=== PATIENT | male | born 1940 | race African-American/Black ===

== ENCOUNTER 2016-07-13 19:36 | Emergency (ER) | payer OTHER ==
[~2016-07-13] VITALS: Ht 170.2 cm; Wt 68.0 kg
[~2016-07-13 19:36] MED LIST: ACETAMINOPHEN325 M1 PO; ACID CONTROL20 MG PO; ASPIRIN EC81 M1 PO; ASPIRIN325 PO; BISA-LAX5 MG PO; BISACODYL SUPP10 MG RECTAL; CELEXA20 MG PO; CENTRUM SILVER1 EAC4 PO; CENTRUM SILVER1 EAC5 PO; COLACE100 MG PO; COUMADIN 4 MG TA4 M1 PO; COUMADIN 5 MG TA5 M1 PO; CRESTOR20 MG PO; CRESTOR5 MG PO; DUETACT 30-2 M1 EACH; ENOXAPARIN80 MG/0.1 SUBQ; FLEXERIL PO; GLIPIZIDE ER5 MG PO; HEPARIN SO1000 UNIT/ IV PUSH; JANUVIA25 MG PO; LASIX 40 MG TAB40 M1 PO; LIPITOR 20 MG T20 M1 PO; LORTAB 5 MG/5001 TA1 PO; MEGESTROL ACETA40 MG PO; MEGESTROL40 MG/1 M1 PO; MIDODRINE HCL10 MG PO; MIRALAX17 GM PO; MYNEPHROCAPS SOF1 MG PO; NEPHPLEX RX TA1 EACH PO; NEPHROCAPS SOFT1 CAP PO; NEURONTIN 300300 M1 PO; NICOTINE TRANSD21 M1 TRANSDERM; NORCO 5-325 TA1 EACH PO; PROTONIX40 M1 PO; PYRIDOXINE HCL100 MG PO; REGLAN 10 MG TA10 MG PO; REMERON15 MG PO; RENAL CAPS SOFTG1 MG; RENO CAPS; RENO CAPS PO; RENVELA800 MG PO; SENNA PO; SENSIPAR 30 MG30 M1 PO; TAMSULOSIN HCL0.4 M1; TAMSULOSIN HCL0.4 M1 PO; TIMOLOL GL0.5 %/5 M1 OPHTHALMIC; TRADJENTA5 MG; TYLENOL325 MG PO; ULTRA-LIGHT RO1 EACH; VITAMIN B-1100 M1 PO; VITAMIN D31000 UNI2 PO; VITAMIN D3400 UNI1 PO; ZOCOR20 MG PO
[2016-07-13 20:25] LABS: ABSOLUTE NEUTROPHILS 8.5 thou/uL (1.4-8.2); BASOPHILS 0.4 % (0.0-2.0); EOSINOPHILS 0.2 % (0.0-3.0); HEMATOCRIT 38.3 % (42.0-52.0); HEMOGLOBIN 12.7 gm/dL (14.0-18.0); LYMPHOCYTES 11.4 % (24.0-44.0); MCH 27.6 pg (26.0-34.0); MCHC 33.1 % (28.0-37.0); MCV 83.6 fL (80.0-100.0); PLATELET COUNT 316 thou/uL (150-400); RBC 4.58 mil/uL (4.50-6.00); WBC 10.8 thou/uL (4.0-11.0)
[2016-07-13 20:30] LABS: CALCIUM 8.9 mg/dL (8.5-10.1); CREATININE 8.3 mg/dL (0.6-1.3); MANUAL DIFF NO; POTASSIUM 5.7 mmol/L (3.5-5.1)
[2016-07-13 20:35] LABS: ALBUMIN 2.7 g/dL (3.4-5.0); TOTAL BILIRUBIN 0.9 mg/dL (<0.1-1.0); TOTAL PROTEIN 8.1 g/dL (6.4-8.2)
[2016-07-13] MEDS ORDERED: AUGMENTIN 875-1 EACH PO (21:08)
== END 2016-07-13 21:18 | disposition home or self-care (01) ==
LOC: ER 19:36
PROVIDERS: Emergency Medicine
DX: J18.9 Pneumonia, unspecified organism (principal); E87.5 Hyperkalemia; N18.6 End stage renal disease; F17.210 Nicotine dependence, cigarettes, uncomplicated; Z99.2 Dependence on renal dialysis